=== PATIENT | female | born 1955 | race Caucasian/White ===

== ENCOUNTER 2019-10-16 13:40 | Outpatient (CLI) | payer OTHER ==
--- NOTE | 2019-10-16 16:01 | RAD ---
RADIOGRAPH CERVICAL SPINE 3 VIEWS: 10/16/19 at 1:55 p.m. HISTORY: 63-year-old female with cervicalgia and ICD-10: M50.022, cervical disc disorder at C5-6 level with m yelopathy. COMPARISON: None. TECHNIQUE: Three lateral views in neutral, flexion, and extension. No AP or open mouth views. FINDINGS: Vertebral body heights and disc spaces are maintained. There is satisfactory range of motion. There i s no significant spondylolisthesis, and no instability between flexion and extension. No prevertebral soft tissue swelling. IMPRESSION: Negative. JN [] POS: JIN
== END 2019-10-16 13:41 | disposition home or self-care (01) ==
LOC: SCSRAD 13:40
PROVIDERS: ATTEND Neurological Surgery
DX: M50.022 Cervical disc disorder at C5-C6 level with myelopathy (principal)
CPT/HCPCS: 72040

== ENCOUNTER 2019-10-22 05:42 | Day surgery (SDC) | payer OTHER ==
--- NOTE | 2019-10-21 10:10 | HP ---
CHIEF COMPLAINT: Neck pain with myelopathy, weakness and unsteady gait HISTORY OF PRESENT ILLNESS: Mrs. Feng is a 63-year-old woman who fell two weeks after Thanksgiving. She started to notice she has significant loss of sensation and strength in her left arm and hand. Her burning sensation started to become more intense. She started to walk with a limp because her right leg started to drag. This made stair climbing almost impossible. She denies any pain in her right leg. Complained of numbness and weakness. REVIEW OF SYMPTOMS: CONSTITUTIONAL: Denies fever, chills, weight loss, night, sweats, loss of energy. HEENT: Denies change in vision or hearing, difficulty swallowing. CARDIOVASCULAR/RESPIRATORY: Denies chest pain, shortness of breath, cough, diaphoresis, hemoptysis. GI: Denies abdominal pain, nausea, vomiting, diarrhea, hamilton in stool formation and consistency. : Denies trouble wih urination, frequency of urination, bloody urine. MUSCULOSKELETAL: As per history of present illness. NEUROLOGICAL: As per history of present illness. PSYCHOLOGICAL: Denies anxiety, hallucinations, personality changes. PAST MEDICAL HISTORY: Hypertension, hypothyroidism. PAST SURGICAL HISTORY: ANGELICA with BSO. FAMILY HISTORY: Father alive, diagnosed with hypertension stroke. Mother alive , hypertension. Children alive. Two sons, one daughter, healthy. SOCIAL HISTORY: Nonsmoker. Does not use alcohol. Does not use illicit drugs. MEDICATIONS: 1. Levothyroxine. 2. Diclofenac. 3. Metoprolol. 4. Estradiol. 5. Gabapentin. 6. Olmesartan-medoxomil. PHYSICAL EXAMINATION: VITAL SIGNS: Weight 180, height 67 inches. HEENT: Pupils are equal. Extraocular movements are intact. NECK: Soft, supple. No masses are noted. Range of motion intact and nonpainful. NEUROLOGICAL: Awake, alert, and oriented x3. Memory, attention, fund of knowledge normal. Cranial nerves grossly intact. Upper extremities, left arm is weaker than the right arm in the deltoids, biceps, triceps, wrist extensions, finger extensions, finger intrinsics. Sensory exam, non-dermatomal numbness in the hands, left greater than right. Lower extremities; the right leg is weaker than the left leg with the anterior tib being mostly affected. IMAGING: MRI: left C5-C6 HNP with cord compression. ASSESSMENT: Cervical disk disorder at C5-C6 level with myelopathy. PLAN: 1. C5-C6 ACDF. 2. Anesthesia clearance. 3. Wear Hinds J collar after surgery. 4. Follow up in two weeks in our clinic. 5. We will order upright lateral/AP/swimmer x-ray views of the C-spine. INFORMED CONSENT: We discussed the indications, risks, benefits, alternatives, and expected results from surgery. The risks discussed included, but were not limited to, bleeding, infection, CSF leak, nerve damage, weakness, swallowing trouble, feeding tube placement, tracheal injury, esophageal injury, vocal cord injury, spinal cord injury, incontinence, paralysis, ventilator dependency, wheelchair dependency, stroke, loss of vision, carotid artery injury, jugular vein injury, hardware misplacement, cardiopulmonary complications of anesthesia or . Long-term complications discussed included but were not limited to hardware failure and degeneration of surrounding disk. She understands the risks and is willing to proceed. Urgent COVID Surgery scheduled for 10/22/2019: In our medical judgment, the patient has a serious medical condition and this surgery is medically necessary. In our medical judgment, delaying the surgery would put the patient at risk for serious adverse consequences. We have been approved by the facility review process to proceed for the benefit of the patient. Job ID: [id number] [facility]
[2019-10-21 10:20] VITALS: BMI 28.1
[2019-10-22 06:22] LABS: #Basophils 0.1 thou/uL (0.0-0.2); #Eosinphils 0.2 thou/uL (0.0-0.7); #Lymphocytes 2.5 thou/uL (1.20-3.40); #Monocytes 0.7 thou/uL (0.11-0.59); #Neutrophils 4.5 thou/uL (1.40-6.50); %Basophils 1.3 % (0.0-1.0); %Eosinophils 2.5 % (0.0-10.0); %Lymphocytes 30.8 % (21.0-51.0); %Monocytes 9.1 % (0.0-10.0); %Neutrophils 56.3 % (42.0-75.0); Hemoglobin 13.2 g/dL (12.0-16.0); Mean Corpuscular HGB CONC 34.6 g/dL (32.0-36.0); Mean Corpuscular Hemoglobin 32.5 pg (27.0-31.0); Mean Corpuscular Volume 93.9 fL (78.0-98.0); Mean Platelet Volume 7.1 fL (7.4-10.4); Platelet Count 238 thou/uL (130-400); RBC Distribution Width 11.8 % (11.5-14.5); Red Blood Cell (RBC) Count 4.06 mill/uL (4.20-5.40)
[2019-10-22] MEDS ORDERED: Thrombin 5000 UNITS/5 ML VIAL ONE ×2 (06:23→07:37)
[2019-10-22 06:28] LABS: INR-International Normal Ratio 0.9; Prothrombin Time 12.3 SEC (12.0-14.7)
[2019-10-22 06:29] LABS: PTT 29.3 SEC (22.9-36.1)
[2019-10-22] MEDS ORDERED: Fentanyl 100 MCG/2 ML VIAL ONE ×2 (06:49→08:32)
[2019-10-22] MEDS ORDERED: PHENYLEPHRINE-NS 100 MCG/ML 10 ML SYRINGE ONE (11:47)
[2019-10-22] MEDS ORDERED: Dexamethasone 20 MG/5 ML VIAL ONE (11:47)
[2019-10-22] MEDS ORDERED: EPHEDRINE 25 MG/5 ML SYRINGE ONE (11:47)
[2019-10-22] MEDS ORDERED: Ondansetron PF 4 MG/2 ML Vial ONE (11:47)
[2019-10-22] MEDS ORDERED: PROPOFOL 200 MG/20 ML VIAL ONE (11:47)
[2019-10-22] MEDS ORDERED: Glycopyrrolate 0.2 MG/ML 5 ML SYRINGE ONE (11:47)
[2019-10-22] MEDS ORDERED: Rocuronium Bromide 10 MG/ML (10ML VIAL) ONE (11:47)
[2019-10-22] MEDS ORDERED: Lidocaine 1% PF 5 ML VIAL ONE ×2 (11:47)
--- NOTE | 2019-10-22 12:46 | OP ---
DATE OF PROCEDURE: 10/22/2019 MANAGER PARK: Maximiliano Alvarado PA-C. PREOPERATIVE INDICATION: Prevent further neurological deterioration. 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 POSTOPERATIVE DIAGNOSES: Cervical intervertebral disk herniation with cord compression and myelopathy at C5-C6. PROCEDURE PERFORMED: Anterior cervical diskectomy, intervertebral arthrodesis, placement of intervertebral biomechanical device, anterior cervical plating at C5-C6, local morselized autograft, morselized allograft, operating microscope. PREOPERATIVE MEDICATIONS: Ancef 2 g IV. DRAIN NUMBER: Zero. DRAIN TYPE: None. DESCRIPTION OF PROCEDURE: The patient was brought to the operating room. General endotracheal anesthesia was induced. The patient was carefully positioned on the operating table with her head supported by a gel-filled doughnut shaped headrest and we kept the neck in normal anatomic alignment. A lateral fluoro radiograph was used to plan our incision. The right side of the neck was sterilely prepped and draped. We opened with a 10-blade knife and we controlled bleeding with bipolar cautery. We dissected sharply to the platysma and we cut this muscle in line with our incision. We continued our dissection medial to the sternocleidomastoid and lateral to the trachea and esophagus. We arrived to the prevertebral space. We placed a marker at C5-C6 and took a lateral fluoro radiograph to confirm the level upon which we were operating. We then elevated the longus colli muscles off the anterior surface of C5 and C6. We placed distraction pins at C5 and C6 and distracted across the intervening interspace with the [place] distractor. We incised the interspace with a 15-blade knife and we removed disk contents using curettes and rongeurs. The operative microscope was brought into the field. Under microscopic magnification and using microsurgical techniques, we removed the remainder of the intervertebral disk. We accessed the ventral epidural space with a micro-curette. Using 1 and 2 mm Kerrison rongeurs, we removed the posterior longitudinal ligament and posterior osteophytes and disk material from one neural foramen all the way to the other. We ensured both nerve roots and spinal cord were well decompressed. We then turned our attention to arthrodesis. Using curettes, we prepared the endplates for grafting by removing the cartilaginous cap. We measured the height of the interspace with a rectangular bone rasp to 9 mm. A 9 mm PEEK intervertebral graft was brought into the field. Osteophytes were removed during our decompression. We were cleaned of soft tissue attachments, morselized, and added into demineralized bone matrix to form a fusion substrate. The substrate was packed in the center of the PEEK device and that device was advanced into the interspace under radiographic guidance to the appropriate depth. We removed our distraction pins. A 14 mm cervical plate was brought into the field. We drilled ship's pilot holes through the plate into the vertebral bodies at C5 and C6, and we affixed the plate with 14 mm screws. Fixed angle screws were used at C6 and variable angle screws at C5. We engaged the locking mechanism over each of the 4 screws. AP and lateral fluoro radiographs confirmed adequate positioning of our instrumentation. We irrigated copiously with bacitracin irrigation. We closed the wound in anatomical layers and we applied a sterile dressing. This was a clean case, no contamination. Job ID: [id number]
== END 2019-10-22 13:40 | disposition home or self-care (01) ==
LOC: SDC 05:42
PROVIDERS: ATTEND Neurological Surgery
PROC: 0RT30ZZ Resection of Cervical Vertebral Disc, Open Approach (ICD-10-PCS; principal; 2019-10-22)
PROC: 0RG10A0 Fusion of Cervical Vertebral Joint with Interbody Fusion Device, Anterior Approach, Anterior Column, Open Approach (ICD-10-PCS; principal; 2019-10-22)
DX: M50.022 Cervical disc disorder at C5-C6 level with myelopathy (principal); I10 Essential (primary) hypertension; E03.9 Hypothyroidism, unspecified; Z79.899 Other long term (current) drug therapy
CPT/HCPCS: 36415; 76000; 85025; 85610; 85730; C1713; C1776; J0690; J1100; J2001; J2405; J2704; J3010

== ENCOUNTER 2021-03-30 10:37 | Outpatient (CLI) | payer OTHER | END 2021-03-30 10:38 | disposition home or self-care (01) | LOC: TBSIIMAG 10:37 | PROVIDERS: ATTEND Neurological Surgery | DX: M54.2 Cervicalgia (principal); M47.812 Spondylosis without myelopathy or radiculopathy, cervical region; Z98.890 Other specified postprocedural states | CPT/HCPCS: 72050 ==